=== PATIENT | male | born 2000 | race Caucasian/White ===

== ENCOUNTER 2025-06-29 18:50 | Emergency (ER) | payer OTHER, SELFPAY ==
[2025-06-29 18:54] VITALS: BP 154/103
--- NOTE | 2025-06-29 19:34 | ED.GENMED ---
History of Present Illness
General
Chief Complaint: Crisis Evaluation
Time Seen by Provider: 06/29/25 19:34
History of Present Illness
History of Present Illness:
FOCUSED PAST MEDICAL HISTORY
- Schizoaffective disorder not currently taking medication
REVIEW OF OLD RECORDS
- The patient was seen in the emergency room with a fever in 2018
- Brain MRI 2022 unremarkable
Note:
CHIEF COMPLAINT(S)
- Worsening mental status with disorganized thinking.
HISTORY OF PRESENT ILLNESS
The patient is a 25-year-old male with a history of psychiatric issues dating back to college, where he was an honor student [facility] [email or web address] [place] through college, he began experiencing mental breakdowns. After graduating, he moved to
[place] and subsequently had another breakdown, leading to his return to live with his parents. He was treated at [facility] in [place] for seven months in 2023, during which he was prescribed Cariprazine (Vraylor) and reportedly
doing well. However, he discontinued the medication after returning to [place], due to losing contact with his psychiatrist.
Recently, over the past week, there has been an escalation in disorganized thinking and behavior. The patient reports feeling like people speak through him, making it difficult for him to form his own sentences. He denies being in a mental health
crisis but acknowledges some disruptive thoughts. Today, the patient visited a psychiatrist who prescribed Quetiapine (Seroquel). The patient claims to have taken a dose en route to the emergency department today. The patients behavior has been
increasingly bizarre, with a notable incident of becoming violent tonight, causing further concern for his parents, who describe his condition as worsening daily.
The patients marijuana use was identified as a potential trigger for these episodes. He reportedly consumed marijuana edibles two weeks ago and experienced a violent reaction. He has been intermittently non-cooperative during the evaluation but
denies any current thoughts of self-harm. 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 His parents express significant concern over his deteriorating
condition.
PAST MEDICAL AND SURGICAL HISTORY
- Previous psychiatric episodes with disorganized thinking since college.
SOCIAL HISTORY
The patient lives with his parents after prior independent living. 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 He has a history of intermittent marijuana use and no recent alcohol or illicit drug use.
PHYSICAL EXAM
General: Alert, no acute distress.
Skin: Warm, dry.
Head: Normocephalic, atraumatic.
Neck: Supple, trachea midline.
Eye Ears, nose, mouth and throat: Oral mucosa moist.
Cardiovascular: Normal peripheral perfusion, no edema.
Respiratory: Respirations are non-labored.
Gastrointestinal: Abdomen nondistended.
Back: Normal range of motion, normal alignment.
Musculoskeletal: Normal range of motion, normal strength.
Neurological: Alert and oriented to person, place, time, and situation, no focal neurological deficit observed.
Psychiatric: Cooperative, occasionally appears somewhat frustrated as he does not feel that he needs to be here right now, though exhibits disorganized thinking
PROBLEM LIST
- Acute: Worsening disorganized thinking with potential violent behavior.
- Chronic: History of psychiatric episodes, marijuana use.
PLAN
- Psychiatric evaluation to assess current mental status and appropriateness for inpatient care.
- Monitor and support family concerns, ensuring they have resources for mental health crises.
- Verify compliance with Quetiapine (Seroquel) and reassess effectiveness and side effects.
- Encourage avoidance of marijuana use due to potential exacerbation of symptoms.
DIFFERENTIAL DIAGNOSIS
The Differential Diagnosis includes, in no particular order and is not limited to:
- Schizophrenia
- Schizoaffective disorder
- Bipolar disorder with psychotic features
- Substance-induced psychotic disorder
- Major depressive disorder with psychotic features
- Acute stress disorder
- Delusional disorder
- Psychotic disorder due to another medical condition
- Severe anxiety disorder
- Mood disorder with psychotic features
SUMMARY OF ENCOUNTER
The patient, a 25-year-old male, presented to the emergency department with worsening mental status characterized by disorganized thinking and recent violent behavior, which has raised concern among his parents. He recently met with a psychiatrist
and was prescribed Quetiapine (Seroquel), which he claims to have started taking today. Crisis evaluation was conducted, and the patients situation was further evaluated, revealing that he is not currently a threat to himself or others. The patient
expressed willingness to adhere to the prescribed medication regimen. Given the patient�s outpatient psychiatric care and the lack of immediate threat, admission to the hospital (302) was deemed unnecessary.
ASSESSMENT
The patient is experiencing worsening disorganized thinking and behavior likely related to psychiatric issues. Compliance with recently prescribed Quetiapine could potentially stabilize his condition.
PLAN
- Encourage continued compliance with Quetiapine (Seroquel) as prescribed.
- Monitor the effectiveness of the medication and assess for any side effects.
- Support the family by providing resources and contacts for mental health crises.
- Recommend avoidance of marijuana use due to its potential impact on his mental status.
FOLLOW-UP INSTRUCTIONS
The patient will continue care with his outpatient psychiatrist. It is recommended to maintain regular appointments and adhere to prescribed treatments.
MEDICATION RECONCILIATION
Patient has been prescribed Quetiapine (Seroquel).
MEDICAL DECISION MAKING
- Number and Complexity of Problems Addressed: Chronic conditions affecting care include a history of psychiatric episodes and marijuana use. Differential Diagnosis includes schizophrenia, schizoaffective disorder, bipolar disorder with psychotic
features, substance-induced psychotic disorder, major depressive disorder with psychotic features, acute stress disorder, delusional disorder, psychotic disorder due to another medical condition, severe anxiety disorder, and mood disorder with
psychotic features.
DIAGNOSIS
- Acute exacerbation of schizoaffective Disorder (F25.0)
- Substance-Induced Psychotic Disorder less likely
Past History
Past History
ED Past Medical History: None
ED Past Surgical History: None
Social History
Tobacco: Non-smoker
Phy Exam
Physical Exam
Physical Exam:
See HPI
Course
Orders/Labs/Results
Orders:
Orders
06/29/25 19:03
Crisis Consult Urgent
Reason for Consult: hx schizoaffective not tkaing meds brought in by family
06/29/25 19:46
Drug Screen, Urine [Urine Drug Abuse Screen] Urgent
Vital Signs
Initial and Last Documented VS:
Initial Vital Signs
Temp Pulse Resp BP Pulse Ox
36.4 C 78 16 154/103 98
06/29/25 18:54 06/29/25 18:54 06/29/25 18:54 06/29/25 18:54 06/29/25 18:54
Last Documented Vital Signs
Temp Pulse Resp BP Pulse Ox
36.4 C 78 18 154/103 98
06/29/25 18:54 06/29/25 18:54 06/29/25 19:32 06/29/25 18:54 06/29/25 19:37
*Pulse Oximetry
SaO2: 98
Oxygen Mode of Delivery: Room air
Patient hypoxic: no
*Critical Care Note
Total Time (30-74mins, 75-104mins- exclusive of procedures): Not Applicable
ED Attending Note
-
Portions of this chart may have been created with voice recognition software.� Occasional wrong word or��sound alike� substitutions may have occurred due to the inherent limitations of voice recognition software.
Discharge Plan
Departure
Patient Disposition: Home (Routine Discharge)
Date of Disposition: 06/29/25
Time of Disposition: 20:24
Patient with high blood pressure during this ER visit?: Yes
Discharge Problem:
Schizoaffective disorder
Instructions: Schizoaffective disorder (DC), BLOOD PRESSURE
Prescriptions:
No Action
No Current Medications
0
Referrals:
Jerzy Garcia MD [Family Provider, Family Practice]
Activity Restrictions/Additional Instructions:
I strongly agree with your psychiatrist that you should be starting to take the quetiapine (Seroquel) on a daily basis. Return if worse or other concerns or if you feel that you are a threat to yourself or others.
Interventions
Interventions:
*Risk Screen - Suicide Last Done: 06/29/25 18:52
*General Assessment Last Done: 06/29/25 19:32
*Neglect/Abuse Screening Last Done: 06/29/25 19:32
*ED- Fall Risk Assessment Last Done: 06/29/25 19:32
*ED COVID-19 Vaccine History Last Done: 06/29/25 19:32
*ED Influenza Vaccine History Last Done: 06/29/25 19:32
ED-Psychological Assessment Last Done: 06/29/25 19:32
Discharge Date and Time
Print Language: HUNGARIAN
== END 2025-06-29 20:43 | disposition home or self-care (01) ==
LOC: EMR 18:50
PROVIDERS: EMERGENCY PHYSICIAN Emergency Medicine; FAMILY PHYSICIAN Family Medicine
DX: F25.9 Schizoaffective disorder, unspecified (principal); F12.90 Cannabis use, unspecified, uncomplicated; T43.596A Underdosing of other antipsychotics and neuroleptics, initial encounter; Z91.128 Patient's intentional underdosing of medication regimen for other reason
CPT/HCPCS: 99283